=== PATIENT | male | born 1975 | race Two or more races ===

== ENCOUNTER 2022-10-16 13:18 | Emergency (ER) | payer SELFPAY ==
[~2022-10-16] VITALS: Ht 177.8 cm; Wt 106.6 kg
--- NOTE | 2022-10-16 13:25 | NUR ---
OLAYINKA Pacheco, PER EMS, "picked him up from [facility] [place]. Apparently he was on working on top of a ladder slipped- Fell on parked car- Back/rib pain". NO LOC. TO ER BED 9.
[2022-10-16] MEDS ORDERED: ONDANSETRON HCL/PF 4 MG/2 ML VIAL IVP ONE (13:30)
[2022-10-16] MEDS ORDERED: HYDROMORPHONE INJ 2 MG/ML DISP.SYRIN IV ONE (13:30)
[2022-10-16] MEDS ORDERED: IV NS 0.9% 1,000 ML BAG IV ONE (13:30)
[2022-10-16] MEDS ORDERED: ONDANSETRON HCL/PF 4 MG/2 ML VIAL ONE (13:40)
[2022-10-16] MEDS ORDERED: HYDROMORPHONE 1 MG/1 ML DISP.SYRIN ONE (13:40)
--- NOTE | 2022-10-16 13:53 | NUR ---
LAC #20, BLOOD DRAWN AND COLLECTED BY PHLEB AT BEDSIDE
--- NOTE | 2022-10-16 14:00 | NUR ---
PT UNABLE TO PROVIDE URINE AT THIS TIME; URINAL GIVEN TO PT AT BEDSIDE
[2022-10-16 14:02] LABS: BASOPHILS % (AUTO) 0.5 % (0.0-2.0); EOSINOPHILS % (AUTO) 1.5 % (0.0-6.0); HEMATOCRIT 46 % (39-51); HEMOGLOBIN 15.6 g/dL (13.5-17.5); LYMPHOCYTES # (AUTO) 1.9 K/uL (0.8-4.8); LYMPHOCYTES % (AUTO) 28.6 % (20.0-44.0); MEAN CORPUSCULAR HGB CONC 34 g/dl (31.0-36.0); MEAN CORPUSCULAR VOLUME 85 fL (80-96); MONOCYTES # (AUTO) 0.4 K/uL (0.1-1.30); MONOCYTES % (AUTO) 5.6 % (2.0-12.0); NEUTROPHILS # (AUTO) 4.3 K/uL (1.8-8.9); NEUTROPHILS % (AUTO) 63.8 % (43.0-81.0); PLATELET COUNT (AUTO) 299 K/uL (150-450); RED BLOOD CELL COUNT(AUTO) 5.38 MIL/uL (4.5-6.0); WHITE BLOOD COUNT (AUTO) 6.8 K/uL (4.3-11.0)
--- NOTE | 2022-10-16 14:02 | NUR ---
PT TAKEN TO RADIOLOGY FOR CT
--- NOTE | 2022-10-16 14:12 | NUR ---
PT RETURNED FROM RADIOLOGY
[2022-10-16] MEDS ORDERED: LIDOCAINE 5% (PATCH) 1 EA PATCH TP SCH (15:00)
[2022-10-16] MEDS ORDERED: KETOROLAC TROMETHAMINE INJ 30 MG/ML VIAL IV ONE (15:00)
[2022-10-16] MEDS ORDERED: KETOROLAC TROMETHAMINE INJ 30 MG/ML VIAL ONE (15:01)
[2022-10-16] MEDS ORDERED: LIDOCAINE 5% (PATCH) 1 EA PATCH TP ONE (15:01)
[2022-10-16] MEDS ORDERED: LIDO30AD10 TP (15:06)
[2022-10-16] MEDS ORDERED: NAPR-1164 PO (15:06)
--- NOTE | 2022-10-16 15:35 | NUR ---
INCENTIVE SPIROMETER PROVIDED TO PT; BEDSIDE TEACHING DONE FOR USE OF DEVICE, PT ABLE TO RETURN DEMO.
--- NOTE | 2022-10-16 16:16 | NUR ---
ABLE TO AERONAUTICAL ENGINEERING TECHNOLOGIST PT
--- NOTE | 2022-10-16 16:44 | NUR ---
IV removed. Catheter intact and site benign. Pressure and 4x4 applied to site. No bleeding noted.
--- NOTE | 2022-10-16 16:46 | NUR ---
Patient discharged to home in stable condition. Written and verbal after care instructions given. Patient verbalizes understanding of instruction.
[2022-10-16 16:47] VITALS: BP 120/68
== END 2022-10-16 16:47 | disposition home or self-care (01) ==
LOC: ER 13:30
DX: S20.211A Contusion of right front wall of thorax, initial encounter (principal); F17.200 Nicotine dependence, unspecified, uncomplicated; W11.XXXA Fall on and from ladder, initial encounter; Y93.89 Activity, other specified; Y92.89 Other specified places as the place of occurrence of the external cause; Y99.8 Other external cause status
CPT/HCPCS: 99284; 71250; 96374; 96375; 96361; 74176; 85025; 36415; J1885; J2405; J7030; J1170

== ENCOUNTER 2022-10-21 13:38 | Emergency (ER) | payer OTHER ==
[~2022-10-21] VITALS: Ht 170.2 cm; Wt 97.5 kg
[~2022-10-21 13:38] MED LIST: LIDO30AD10 TP; NAPR-1164 PO
[2022-10-21] MEDS ORDERED: LIDOCAINE 5% (PATCH) 1 EA PATCH TP SCH (14:30)
[2022-10-21] MEDS ORDERED: KETOROLAC TROMETHAMINE INJ 60 MG/2 ML VIAL IM ONE (14:30)
[2022-10-21] MEDS ORDERED: CYCLOBENZAPRINE 10 MG TABLET PO ONE (14:30)
[2022-10-21] MEDS ORDERED: KETOROLAC TROMETHAMINE INJ 30 MG/ML VIAL ONE (14:32)
[2022-10-21] MEDS ORDERED: CYCLOBENZAPRINE 10 MG TABLET ONE (14:32)
[2022-10-21] MEDS ORDERED: LIDOCAINE 5% (PATCH) 1 EA PATCH TP ONE ×2 (14:32→15:47)
--- NOTE | 2022-10-21 15:25 | NUR ---
TORADOL IM, LIDODERM PATCH, AND FLEXERIL PO GIVEN INDICATED, ASIYA WELL
[2022-10-21] MEDS ORDERED: HYDROCODONE/APAP 10/325MG TABLET ONE ×2 (15:38→15:48)
--- NOTE | 2022-10-21 15:48 | NUR ---
NORCO PO GIVEN INDICATED, ASIYA WELL
[2022-10-21] MEDS ORDERED: HYDROCODONE/APAP 10/325MG TABLET PO ONE (16:00)
[2022-10-21] MEDS ORDERED: HYDR-3980 PO (16:13)
[2022-10-21] MEDS ORDERED: LIDO30AD10 TP (16:13)
[2022-10-21 16:23] VITALS: BP 130/76
--- NOTE | 2022-10-21 16:23 | NUR ---
Patient discharged to home in stable condition. Written and verbal after care instructions given. Patient verbalizes understanding of instruction. CD of images provided to pt.
== END 2022-10-21 16:23 | disposition home or self-care (01) ==
LOC: ER 13:41
DX: S22.41XA Multiple fractures of ribs, right side, initial encounter for closed fracture (principal); F17.200 Nicotine dependence, unspecified, uncomplicated; Z79.899 Other long term (current) drug therapy; W11.XXXA Fall on and from ladder, initial encounter; Y93.89 Activity, other specified; Y92.89 Other specified places as the place of occurrence of the external cause; Y99.8 Other external cause status
CPT/HCPCS: 99285; 71250; 96372; 72131; J1885